=== PATIENT | male | born 1985 | race Caucasian/White ===

== ENCOUNTER 2019-04-10 11:50 | Inpatient (IN) | payer MEDICAID, OTHER ==
--- NOTE | 2019-04-10 13:12 | ED ---
Psych HPI - General Chief Complaint: Psychiatric Symptoms Stated Complaint: Mental Health Time Seen by Provider: 04/10/19 11:53 Source: patient, EMS, RN notes reviewed Mode of arrival: EMS Limitations: no limitations - History of Present Illness Initial Comments: 34-year-old male presents emergency Department for psychiatric evaluation. Patient states that he called 911 for help. Patient states that he is depressed, suicidal. Patient was standing on a bridge states he was going to jump off. He does admit to alcohol use and marijuana use. Patient denies any physical complaints other than his chronic pain. Patient denies any nausea vomiting diarrhea constipation. Denies any alcohol withdrawal symptoms. - Related Data Home Medications Medication Instructions Recorded Confirmed No Known Home Medications 04/10/19 04/10/19 Allergies Allergy/AdvReac Type Severity Reaction Status Date / Time No Known Allergies Allergy Verified 04/10/19 12:23 Review of Systems ROS Statement: Those systems with pertinent positive or pertinent negative responses have been documented in the HPI. ROS Other: All systems not noted in ROS Statement are negative. Past Medical History Past Medical History: GERD/Reflux Additional Past Medical History / Comment(s): hx ulcer, hiatal hernia, arthritis ADD bipolar disorder neuropathy both [id number] idiopathic History of Any Multi-Drug Resistant Organisms: MRSA Date of last positivie culture/infection: 06/02/2010 MDRO Source:: rt axilla Past Surgical History: Cholecystectomy, Hernia Repair, Orthopedic Surgery Additional Past Surgical History / Comment(s): arthroscopic rt knee for ACL repair, myringotomy x 4, left mastoid surgery, LAP UNRULY FUNDOPLASTY Past Anesthesia/Blood Transfusion Reactions: No Reported Reaction Past Psychological History: ADD/ADHD, Anxiety, Bipolar Smoking Status: Current every day smoker Past Alcohol Use History: Occasional Past Drug Use History: Marijuana - Past Family History Mother Family Medical History: Diabetes Mellitus, Hypertension General Exam Limitations: no limitations General appearance: alert, in no apparent distress Head exam: Present: atraumatic, normocephalic, normal inspection Eye exam: Present: normal appearance, PERRL, EOMI. Absent: scleral icterus, conjunctival injection, periorbital swelling ENT exam: Present: normal exam, normal oropharynx, mucous membranes moist Neck exam: Present: normal inspection, full ROM. Absent: tenderness, meningismus, lymphadenopathy Respiratory exam: Present: normal lung sounds bilaterally. Absent: respiratory distress, wheezes, rales, rhonchi, stridor Cardiovascular Exam: Present: normal rhythm, tachycardia, normal heart sounds. Absent: systolic murmur, diastolic murmur, rubs, gallop, clicks GI/Abdominal exam: Present: soft, normal bowel sounds. Absent: distended, tenderness, guarding, rebound, rigid Neurological exam: Present: alert, oriented X3 Psychiatric exam: Present: anxious Skin exam: Present: warm, dry, intact, normal color. Absent: rash Course Vital Signs 04/10/19 04/10/19 04/10/19 11:58 13:08 15:00 Temperature 98.9 F Pulse Rate 111 H 72 88 Respiratory 18 18 18 Rate Blood Pressure 144/98 131/70 140/70 O2 Sat by Pulse 93 L 100 100 Oximetry Medical Decision Making - Medical Decision Making Patient evaluated by EPS and recommends inpatient therapy. - Lab Data Lab Results 04/10/19 Range/Units 13:55 Urine Opiates Screen Not Detected (NotDetected) Ur Oxycodone Screen Not Detected (NotDetected) Urine Methadone Screen Not Detected (NotDetected) Ur Propoxyphene Screen Not Detected (NotDetected) Ur Barbiturates Screen Not Detected (NotDetected) U Tricyclic Antidepress Not Detected (NotDetected) Ur Phencyclidine Scrn Not Detected (NotDetected) Ur Amphetamines Screen Not Detected (NotDetected) U Methamphetamines Scrn Not Detected (NotDetected) U Benzodiazepines Scrn Not Detected (NotDetected) Urine Cocaine Screen Not Detected (NotDetected) U Marijuana (THC) Screen Detected H (NotDetected) Disposition Clinical Impression: Depression, Suicidal ideation Disposition: TRANSFER TO PSYCH HOSP/UNIT
[2019-04-10 14:46] LABS: Amphetamine Screen,Urine Not Detected (NotDetected); Barbiturate Screen,Urine Not Detected (NotDetected); Benzodiazepines Screen,Urine Not Detected (NotDetected); Cocaine Screen,Urine Not Detected (NotDetected); Methadone Screen, Urine Not Detected (NotDetected); Opiate Screen,Urine Not Detected (NotDetected); Oxycodone Screen, Urine Not Detected (NotDetected); Phencyclidine Screen,Urine Not Detected (NotDetected); Tricyclic Antidepressant,Urine Not Detected (NotDetected); Urn Cannabinoid Scrn Detected (NotDetected)
[2019-04-10] MEDS ORDERED: ACETAMINOPHEN TAB 325 MG TAB PO PRN (16:48)
[2019-04-10] MEDS ORDERED: MAG HYDROX/AL HYDROX/SIMETH 30 ML CUP PO PRN (16:48)
[2019-04-10] MEDS ORDERED: ZIPRASIDONE 20 MG VIAL IM PRN (16:48)
[2019-04-10] MEDS ORDERED: MAGNESIUM HYDROXIDE 2,400 MG/10 ML CUP PO PRN (16:48)
[2019-04-10] MEDS ORDERED: LORazepam 2 MG/ML INJ IM PRN (16:52)
[2019-04-10] MEDS: NICOTINE 21MG/24HR PATCH TRANSDERM SCH (17:42)
--- NOTE | 2019-04-11 07:05 | P.MDCNMH ---
History of Present Illness H&P Date: 04/11/19 Chief Complaint: Suicidal ideation 34-year-old male with no significant past medical history reports mental health problems with anxiety ADD and bipolar disorder Patient presented to Hospital suicidal ideation he was planning on jumping off the bridge due to life stressors and feeling overwhelmed at work and home. He works at a [employer]. Patient otherwise denies any medical concerns or complaints at this time he denies any fevers chills chest pain or trouble breathing denies any abdominal pain nausea vomiting changes in his bowel or urinary habits Review of Systems Pertinent positives as noted in HPI. All other systems were reviewed and are negative Past Medical History Past Medical History: GERD/Reflux Additional Past Medical History / Comment(s): hx ulcer, hiatal hernia, arthritis ADD bipolar disorder neuropathy both [id number] idiopathic History of Any Multi-Drug Resistant Organisms: MRSA Date of last positivie culture/infection: 06/02/2010 MDRO Source:: rt axilla Past Surgical History: Cholecystectomy, Hernia Repair, Orthopedic Surgery Additional Past Surgical History / Comment(s): arthroscopic rt knee for ACL repair, myringotomy x 4, left mastoid surgery, LAP UNRULY FUNDOPLASTY Past Anesthesia/Blood Transfusion Reactions: No Reported Reaction Past Psychological History: ADD/ADHD, Anxiety, Bipolar Smoking Status: Current every day smoker Past Alcohol Use History: Occasional Past Drug Use History: Marijuana - Past Family History Mother Family Medical History: Diabetes Mellitus, Hypertension Medications and Allergies Home Medications Medication Instructions Recorded Confirmed Type No Known Home Medications 04/10/19 04/10/19 History Allergies Allergy/AdvReac Type Severity Reaction Status Date / Time No Known Allergies Allergy Verified 04/10/19 16:10 Physical Exam Vitals: Vital Signs Temp Pulse Pulse Resp BP BP Pulse Ox 04/11/19 06:21 98.1 F 78 18 143/82 04/10/19 16:00 98.8 F 102 H 18 144/105 100 04/10/19 15:00 88 18 140/70 100 04/10/19 13:08 72 18 131/70 100 04/10/19 11:58 98.9 F 111 H 18 144/98 93 L Intake and Output 04/10/19 04/11/19 04/11/19 22:59 06:59 14:59 Other: Weight 76.7 kg Constitutional: No acute distress, conversant, pleasant Eyes: Anicteric sclerae, moist conjunctiva, no lid-lag Pupils equal round reactive to light ENMT: NC/AT Oropharynx clear, no erythema, exudates Neck: Supple, FROM, no masses, or JVD No carotid bruits No thyromegaly Lungs: Clear to auscultation Clear to percussion Normal respiratory effort, no accessory muscle use Cardiovascular: Heart regular in rate and rhythm, No murmurs, gallops, or rubs No peripheral edema Abdominal: Soft Nontender, no guarding, rebound or rigidity Abdomen moving with respiration Normoactive bowel sounds No hepatomegaly, No splenomegaly No palpable mass No abdominal wall hernia noted Skin: Small pinpoint lesion on bilateral inner thighs patient picks up on his skin when stressed out no tenderness no erythema no induration no drainage Normal temperature, tone, texture, turgor No induration No subcutaneous nodules No rash, lesions No ulcers Extremities: No digital cyanosis No clubbing Pedal pulses intact and symmetrical Radial pulses intact and symmetrical No calf tenderness Psychiatric: Alert and oriented to person, place and time Flat affect Poor judgment Neuro Muscles Strength 5/5 in all 4 extremities Sensation to light touch grossly present throughout Cranial nerves II-XII grossly intact No focal sensory deficits Lymphatics: no palpable cervical or supraclavicular , or inguinal lymph nodes Cranial Nerve Examination - Cranial Nerves Cranial Nerve II- Optic: Intact Cranial Nerve III- Oculomotor: Intact Cranial Nerve IV- Trochlear: Intact Cranial Nerve V- Trigeminal: Intact Cranial Nerve - Abducens: Intact Cranial Nerve VII- Facial: Intact Cranial Nerve VIII- Auditory: Intact Cranial Nerve IX- Glossopharyngeal: Intact Cranial Nerve X- Vagus: Intact Cranial Nerve XI- Accessory: Intact Cranial Nerve XII- Hypoglossal: Intact Results Labs: Abnormal Lab Results - Last 24 Hours (Table) 04/10/19 Range/Units 13:55 U Marijuana (THC) Screen Detected H (NotDetected) Assessment and Plan Assessment: 34-year-old malesignificant medical history has history of anxiety and bipolar disorder presented for suicidal ideation medicine consulted for medical management currently has no medical concerns Plan: Suicidal ideation Anxiety Bipolar disorder Management per psych Marijuana smoking Tobacco smoking Patient counseled to quit smoking nicotine replacement therapy offered Low risk for DVT patient is ambulatory Follow-up labs Thank you for allowing us to participate in the care of this patient. We will follow peripherally. Do not hesitate to contact us with questions. Someone can be reached from the [facility] hospitalist group at all hours of the day at [phone].
[2019-04-11] MEDS: NICOTINE 21MG/24HR PATCH TRANSDERM SCH (07:36)
[2019-04-11 09:38] LABS: Basophils % (A) 1 %; Eosinophils # (A) 0.1 k/uL (0-0.7); Eosinophils % (A) 1 %; HCT 45.4 % (39.0-53.0); HGB 15.1 gm/dL (13.0-17.5); Lymphocytes # (A) 1.7 k/uL (1.0-4.8); Lymphocytes % (A) 23 %; MCH 30.6 pg (25.0-35.0); MCHC 33.2 g/dL (31.0-37.0); MCV 91.9 fL (80.0-100.0); Mean Platelet Volume 6.4; Monocytes # (A) 0.5 k/uL (0-1.0); Monocytes % (A) 7 %; Neutrophils # (A) 4.9 k/uL (1.3-7.7); Neutrophils % (A) 67 %; Platelet Count 297 k/uL (150-450); RBC 4.94 m/uL (4.30-5.90); RDW 13.7 % (11.5-15.5); WBC 7.4 k/uL (3.8-10.6)
[2019-04-11 09:51] LABS: ALT 41 U/L (21-72); AST 50 U/L (17-59); African American GFR (CKD) >90 (>60 ml/min/1.73 sqM); Albumin 4.6 g/dL (3.5-5.0); Alkaline Phosphatase 78 U/L (38-126); Anion Gap 7 mmol/L; Blood Urea Nitrogen 10 mg/dL (9-20); Calcium 9.7 mg/dL (8.4-10.2); Carbon Dioxide 27 mmol/L (22-30); Chloride 104 mmol/L (98-107); Cholesterol 222 mg/dL (<200); Glucose 130 mg/dL (74-99); HDL Cholesterol 110 mg/dL (40-60); LDL Cholesterol,Calculated 90 mg/dL (0-99); Potassium 3.8 mmol/L (3.5-5.1); Sodium 138 mmol/L (137-145); Total Bilirubin 2.1 mg/dL (0.2-1.3); Total Protein 7.5 g/dL (6.3-8.2); Triglycerides 111 mg/dL (<150)
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
[2019-04-11 13:24] VITALS: BMI 27.3
[2019-04-11] MEDS: LORazepam 1 MG TAB PO PRN (16:40)
[2019-04-11 17:58] LABS: Hemoglobin A1C 5.9 % (4.0-6.0)
[2019-04-11] MEDS: ARIPiprazole 5 MG TAB PO SCH (20:40)
[2019-04-11] MEDS: MELATONIN 3 MG TABLET PO SCH (20:40)
[2019-04-12] MEDS: LORazepam 1 MG TAB PO PRN (10:27)
--- NOTE | 2019-04-12 13:44 | P.PN ---
Progress Note - Text Progress Note Date: 04/12/19 Interval History: Patient is a 34-year-old male who was seen today and he reports that he slept better last night and has been eating more each meal. He states he still feels depressed but no suicidal thoughts. He states that he is feeling anxious, no sweating or shaking. He states that he's been attending groups and activities. He states that he and his girlfriend will still split and he will have to look for housing at the time of discharge and he declined a referral for inpatient alcohol rehab. Mental Status: Appearance/Attitude: Patient is casually dressed, makes eye contact and was cooperative Behavior: Patient does not display any psychomotor agitation or retardation. Speech/Language: Patient's speech was spontaneous and normal volume and rhythm and he is coherent Thought Process: Patient is goal-directed there is no evidence of loose association or flight of ideas Thought Content: Patient denies any auditory or visual hallucinations and no delusions or paranoid ideation or elicited. Patient states he is feeling less depressed, he slept better last evening and is eating better. He states he still feeling anxious during the day but denies any sweating or shaking. He states that he has been attending groups and activities. Suicidal/Homicidal Ideation: Patient denies any current suicidal or homicidal ideation Sensorium/Cognition: Patient is alert and oriented to person, place, and time and his recent and remote memory grossly intact Mood/Affect: Patient's mood remains depressed and his affect slightly blunted Insight/Judgment: Patient's insight and judgment are fair Assessment: Patient states that he feels somewhat better as he was able to sleep and is eating better. He is not reporting any sweating, shaking or other alcohol withdrawal symptoms. He is reporting no current suicidal thoughts and states he's feeling anxious. Patient states that he will have to look for housing when he is discharged as he is not going to be able to return to live with his girlfriend. Patient states that he is I'm any side effects from the medication. Plan: Patient will continue on Abilify 5 mg and on Monday night we'll increase to 10 mg of Abilify. Patient will continue on melatonin 3 mg to address his sleep difficulties. Patient will also be prescribed Vistaril 25 mg 3 times a day as needed for anxiety and he was instructed to ask for this medication and not Ativan, the Ativan should be used for alcohol withdrawal symptoms. Patient's vital signs morning were stable. Patient and I discussed inpatient alcohol rehab and he declined a referral. Patient continues to require hospitalization to stabilize his mood.
[2019-04-12] MEDS: hydrOXYzine PAMOATE 25 MG CAP PO PRN (17:06)
[2019-04-12] MEDS: MELATONIN 3 MG TABLET PO SCH (21:23)
[2019-04-12] MEDS: ARIPiprazole 5 MG TAB PO SCH (21:23)
[2019-04-13] MEDS: hydrOXYzine PAMOATE 25 MG CAP PO PRN ×2 (07:19→15:34)
--- NOTE | 2019-04-13 11:06 | P.PN ---
Progress Note - Text Interval history: The patient is found in his room he follows me to an interview room. He is diagnosed with bipolar disorder and was admitted with symptoms of depression. He is been started on Abilify as a mood stabilizer. He indicates he slept well last night appetite stable. He indicates he's been attending groups. He has no questions or concerns regarding the Abilify. He states that he needs to find another residence upon discharge. He identifies having little social support. He is considering contacting his sister as she has been helpful no past. Mental status exam: The patient is a male appearing his stated age. He is tanned he wears a long mckinney. He has a disheveled appearance hygiene is adequate. He is pleasant and cooperative. Eye contact is appropriate speech is fluent spontaneous nonpressured. He indicates his mood is better. He is reporting no current suicidal or homicidal ideation intent or plan. He is reporting no auditory or visual hallucinations or any specific delusions. There is no observed evidence of psychosis. He demonstrates no tangential thinking loose associations or flight of ideas. He does not appear hypomanic or manic. Insight and judgment improving. He demonstrates no verbal or physical aggressiveness. He demonstrates no involuntary repetitive movements. He does not appear diaphoretic he demonstrates no tremor. Plan: The patient will continue on his current psychotropic medication. The Abilify is planned to be increased tomorrow. He is encouraged to continue participating in the milieu. We will monitor him for safety. We'll continue to monitor for any alcohol withdrawal symptoms. Vital signs reviewed.
[2019-04-13] MEDS: ARIPiprazole 5 MG TAB PO SCH (20:09)
[2019-04-13] MEDS: MELATONIN 3 MG TABLET PO SCH (20:09)
[2019-04-14] MEDS: hydrOXYzine PAMOATE 25 MG CAP PO PRN ×3 (01:24→17:40)
--- NOTE | 2019-04-14 13:02 | P.PN ---
Progress Note - Text Interval history: The patient is found in group he follows me to an interview room. Indicates his mood is better today. He had a conversation with his ex- girlfriend and that seemed to go better than he anticipated. He states he knows he cannot return there and is planning on contacting his sister today to ask for assistance. He has no questions or concerns regarding medication. He indicates he slept well staff recorded he slept 6 hours. Appetite is stable. He is endorsing no symptoms of withdrawal. Mental status exam: The patient is alert he is dressed in his own clothing. He has adequate hygiene and fair grooming. He has braided his mckinney this morning. Eye contact is appropriate. He is cooperative pleasant easily directed in the interview. He indicates his mood is better he denies having any suicidal or homicidal ideation intent or plan. He is reporting no auditory or visual hallucinations or specific delusions. There is no observed evidence of psychosis. He does not appear hypomanic or manic. Insight and judgment improving. He demonstrates no verbal or physical aggressiveness. He is demonstrating no involuntary repetitive movements. He is oriented to person place and date. Plan: The patient will continue on his medication as written. We will monitor him for safety. He appears to be clinically stabilizing. He is encouraged to continue participating in the milieu. Vital signs reviewed.
[2019-04-14] MEDS ORDERED: ARIPiprazole 10 MG TAB PO SCH (21:00)
[2019-04-14] MEDS: MELATONIN 3 MG TABLET PO SCH (21:15)
[2019-04-15] MEDS: hydrOXYzine PAMOATE 25 MG CAP PO PRN ×2 (05:34→14:03)
[2019-04-15 06:35] VITALS: BP 141/88; PULSE 82; RESP 18; TEMP 97.7
--- NOTE | 2019-04-15 11:31 | P.DS ---
Providers Date of admission: 04/10/19 15:31 Expected date of discharge: 04/15/19 Attending physician: Alice Noonan MD Consults: 04/10/19 17:35 Consult Physician Routine Consulting Provider: Veronica Sanchez Consult Reason/Comments: H&P medical management Do you want consulting provider notified?: Already Contacted Primary care physician: [facility] Course: Discharge Diagnosis: Bipolar type I, current episode depressed with psychotic features; alcohol use disorder, moderate severity; marijuana use disorder, moderate severity Reason for Admission: Patient is a 34-year-old who called 911 because he had thoughts of jumping off the bridge. Patient states that he's been using a pint of alcohol a day since the beginning of the year because he feels like he wants to end it. He states he is so much going on, he has to move out of the house because his girlfriend is asked him to leave due to his drinking, he reports that he is continually asked by his parents to assist them as he states they are disabled. Patient states that his parents are disabled, stating that his mother has fibromyalgia and uses a cane to ambulate and it is his stepfather and he has degenerative disc disease. He states that he has not spoken with them since [place] and hasn't gone there because of a text that they sent his girlfriend about his not coming to assist them. Patient states that things became more stressful in the fall because his girlfriend began working overnight and he needed to be present more often during the day to assist with the children. 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 Patient states that he has become increasingly depressed, using alcohol to make himself feel better and states that he is been isolative and not talking with anyone and this is also caused problems with his girlfriend. Patient states that he is not sleeping well feels tired with little energy and no motivation. He states that he more irritable and does have angry outbursts but is not become physical with either his children or his partner. Patient states that he has not been eating or sleeping well. Patient states that he is more withdrawn and also describes episodes where he has an increased level of energy with decreased need for sleep, patient's up at night cleaning impulsive spending increased interest in sex as well as unrealistic goals and ideas. He also feels he has special phililp during this time to manipulate people to do things that he wants. Patient states he has auditory hallucinations when he is depressed telling him to hurt himself and Jeanna derogatory nature. Patient's recent treatment in 2010 after a suicide attempt and he was admitted here and went to [facility] for several months after just charge and was on Seroquel, Neurontin, Ritalin and unknown antidepressant. Patient states he's had no treatment since that time. Patient states that he began using alcohol at the age of 5 and regular use began at the age of 18. In his 20s he was using a fifth of alcohol every other day currently has been using a pint a day [place] time. Patient states that he has never had any withdrawal seizures or DTs but does state he has blackouts while using alcohol. Patient states that he is also been using marijuana on a daily basis since the age 16. Patient states that his girlfriend is asked him to move out of the house, states this is due to his being withdrawn and not talking as well as being irritable and angry and issues related to the conflicts with his family. Mental status on Admission: Appearance/Attitude: Patient is dressed in a hospital gown, makes eye contact and was cooperative Behavior: Patient does not exhibit any psychomotor agitation or retardation. Speech/Language: Patient's speech is spontaneous of normal volume and rhythm and he is coherent Thought Process: Patient is goal-directed there is no evidence of loose associa tion or flight of ideas Thought Content: Patient reports auditory hallucinations telling him to hurt himself and are of a derogatory nature, no visual hallucinations and no delusions or paranoid ideation or elicited. Patient states that he has been increasingly withdrawn not talking, stated like he felt like he wanted to end it because he got so much going on and now has to move out of his apartment due to his girlfriend asking him to do so. Patient states under a lot of pressure to assist his parents. Patient states he has not been eating or sleeping well and feels tired and unmotivated to do things. Patient has been using alcohol a pint a day since the fall. He also reports multiple physical complaints and states physically doesn't feel well. Suicidal/Homicidal Ideation: Patient denies any current homicidal ideation and states he feels like he should end it all but states he has no current plan or intent to act Sensorium/Cognition: Patient is alert and oriented to person, place, and time and his recent and remote memory grossly intact Mood/Affect: Patient's mood is depressed and his affect is blunted Insight/Judgment: Patient's insight and judgment are fair Hospital Course: Patient was admitted on a voluntary basis, placed on routine observation and group and activity therapy were ordered. Patient was also ordered routine laboratory studies as well as a medical consultation. Patient and I had a long discussion regarding treatment options and we discussed the use and side effects of the Abilify and the patient was begun on 5 mg titrated to a dose of 10 mg at night. Patient was also placed on Ativan for alcohol withdrawal using CIWA protocol. Patient was also placed on melatonin 3 mg at bedtime to assist with his sleep. Patient was also given Vistaril 25 mg every 8 hours as needed for anxiety. Patient reported that he is no longer hearing voices, his mood was much more stable and he was no longer feeling suicidal. Patient and I discussed inpatient alcohol rehab and he declined a referral for that stating that he would prefer to do outpatient. Patient reported that he continued to improve felt the Vistaril was beneficial for his anxiety and that he was sleeping better. He reported that he has girlfriend will not let him return to the home and so he stated he had nowhere to live and was accepting of staying in a fdc. Patient will return to work and felt that he was ready for discharge. He reported no side effects from his medications. Patient had been attending groups and activities here reported that his sleep had improved and he was eating well. Patient's vital signs were stable. Allergies No Known Allergies Allergy (Verified 04/10/19 16:10) Laboratory Last Values WBC 7.4 k/uL (3.8-10.6) 04/11/19 09:14 RBC 4.94 m/uL (4.30-5.90) 04/11/19 09:14 Hgb 15.1 gm/dL (13.0-17.5) 04/11/19 09:14 Hct 45.4 % (39.0-53.0) 04/11/19 09:14 MCV 91.9 fL (80.0-100.0) 07/11/19 09:14 MCH 30.6 pg (25.0-35.0) 04/11/19 09:14 MCHC 33.2 g/dL (31.0-37.0) 04/11/19 09:14 RDW 13.7 % (11.5-15.5) 04/11/19 09:14 Plt Count 297 k/uL (150-450) 04/11/19 09:14 Neutrophils % 67 % 04/11/19 09:14 Lymphocytes % 23 % 04/11/19 09:14 Monocytes % 7 % 04/11/19 09:14 Eosinophils % 1 % 04/11/19 09:14 Basophils % 1 % 04/11/19 09:14 Neutrophils # 4.9 k/uL (1.3-7.7) 04/11/19 09:14 Lymphocytes # 1.7 k/uL (1.0-4.8) 04/11/19 09:14 Monocytes # 0.5 k/uL (0-1.0) 04/11/19 09:14 Eosinophils # 0.1 k/uL (0-0.7) 04/11/19 09:14 Basophils # 0.0 k/uL (0-0.2) 04/11/19 09:14 Sodium 138 mmol/L (137-145) 04/11/19 09:14 Potassium 3.8 mmol/L (3.5-5.1) 04/11/19 09:14 Chloride 104 mmol/L (98-107) 04/11/19 09:14 Carbon Dioxide 27 mmol/L (22-30) 04/11/19 09:14 Anion Gap 7 mmol/L 04/11/19 09:14 BUN 10 mg/dL (9-20) 04/11/19 09:14 Creatinine 0.84 mg/dL (0.66-1.25) 04/11/19 09:14 Est GFR (CKD-EPI)AfAm >90 (>60 ml/min/1.73 sqM) 04/11/19 09:14 Est GFR (CKD-EPI)NonAf >90 (>60 ml/min/1.73 sqM) 04/11/19 09:14 Glucose 130 mg/dL (74-99) H 04/11/19 09:[address] Glu mg/dL 123 04/11/19 09:14 Hemoglobin A1c 5.9 % (4.0-6.0) 04/11/19 09:14 Calcium 9.7 mg/dL (8.4-10.2) 04/11/19 09:14 Total Bilirubin 2.1 mg/dL (0.2-1.3) H 04/11/19 09:14 AST 50 U/L (17-59) 04/11/19 09:14 ALT 41 U/L (21-72) 04/11/19 09:14 Alkaline Phosphatase 78 U/L (38-126) 04/11/19 09:14 Total Protein 7.5 g/dL (6.3-8.2) 04/11/19 09:14 Albumin 4.6 g/dL (3.5-5.0) 04/11/19 09:14 Triglycerides 111 mg/dL (<150) 04/11/19 09:14 Cholesterol 222 mg/dL (<200) H 04/11/19 09:14 LDL Cholesterol, Calc 90 mg/dL (0-99) 04/11/19 09:14 HDL Cholesterol 110 mg/dL (40-60) H 04/11/19 09:14 TSH 2.100 mIU/L (0.465-4.680) 04/11/19 09:14 Urine Opiates Screen Not Detected (NotDetected) 04/10/19 13:55 Ur Oxycodone Screen Not Detected (NotDetected) 04/10/19 13:55 Urine Methadone Screen Not Detected (NotDetected) 04/10/19 13:55 Ur Propoxyphene Screen Not Detected (NotDetected) 04/10/19 13:55 Ur Barbiturates Screen Not Detected (NotDetected) 04/10/19 13:55 U Tricyclic Antidepress Not Detected (NotDetected) 04/10/19 13:55 Ur Phencyclidine Scrn Not Detected (NotDetected) 04/10/19 13:55 Ur Amphetamines Screen Not Detected (NotDetected) 04/10/19 13:55 U Methamphetamines Scrn Not Detected (NotDetected) 04/10/19 13:55 U Benzodiazepines Scrn Not Detected (NotDetected) 04/10/19 13:55 Urine Cocaine Screen Not Detected (NotDetected) 04/10/19 13:55 U Marijuana (THC) Screen Detected (NotDetected) H 04/10/19 13:55 Discharge Mental Status: Appearance/Attitude: Patient is neatly and appropriately dressed, makes eye contact and was cooperative Behavior: Patient does not exhibit any psychomotor agitation or retardation. Speech/Language: Patient's speech is spontaneous of normal volume and rhythm and he is coherent. Thought Process: Patient is goal-directed there is no evidence of loose association or flight of ideas Thought Content: Patient denies any auditory or visual hallucinations and no delusions or paranoid ideation or elicited. Patient states that he is feeling more stable, states that the Vistaril is been beneficial for his anxiety and states that he sleeping and eating well. Suicidal/Homicidal Ideation: Patient denies any current suicidal or homicidal ideation Sensorium/Cognition: Patient is alert and oriented to person, place and time Mood/Affect: Patient's mood is stable his affect is appropriate Insight/Judgment: Patient's insight and judgment are fair Risk Assessment: Patient's risk for readmission is moderate should he return to using alcohol and drugs and not be compliant with medication and follow-up appointments Discharge Plan: Patient will be discharged, he will be living in a fdc and continue on Abilify 10 mg a day and Vistaril 25 mg 3 times a day as needed for anxiety and melatonin 3 mg for sleep. Patient was advised to avoid all alcohol and drugs and be compliant with outpatient follow-up appointments and medication. Patient was encouraged to attend AA meetings. Patient will be given prescriptions for his medication. Patient will Patient Condition at Discharge: Stable Plan - Discharge Summary Discharge Rx Participant: No New Discharge Prescriptions: New ARIPiprazole [Abilify] 10 mg PO HS #14 tab Melatonin 3 mg PO HS #28 tablet hydrOXYzine PAMOATE [Vistaril] 25 mg PO Q8HR PRN #20 cap PRN Reason: Anxiety Discharge Medication List ARIPiprazole [Abilify] 10 mg PO HS #14 tab 04/15/19 [Rx] Melatonin 3 mg PO HS #28 tablet 04/15/19 [Rx] hydrOXYzine PAMOATE [Vistaril] 25 mg PO Q8HR PRN #20 cap 04/15/19 [Rx] Follow up Appointment(s)/Referral(s): Teddy Apodaca [Outside] - 04/17/19 9:30 am (Nelda Muniz) Pavel Hansen DO [Primary Care Provider] - 1-2 days Patient Instructions/Handouts: Bipolar Disorder (DC), Depression (DC), Help Prevent Suicide (DC) Activity/Diet/Wound Care/Special Instructions: Activity and diet as tolerated. No guns or weapons in the home. Refrain from alcohol and drugs that are not prescribed by your physician. Take all medications as prescribed by your physicians, and attend all follow up appointments as scheduled. If in need of medication refills, please go to your primary care physician, or your out patient psychiatric provider. If in crisis, please call , or go the nearest ER for an evaluation. Discharge Disposition: HOME SELF-CARE
== END 2019-04-15 14:43 | disposition home or self-care (01) | DRG 885 ==
LOC: EC 11:50 → 3MHU 15:31
PROVIDERS: ADMIT Psychiatry & Neurology Psychiatry; ATTEND Psychiatry & Neurology Psychiatry
DX: F31.5 Bipolar disorder, current episode depressed, severe, with psychotic features (principal); F10.239 Alcohol dependence with withdrawal, unspecified; R45.851 Suicidal ideations; F12.10 Cannabis abuse, uncomplicated; Z71.6 Tobacco abuse counseling; F17.210 Nicotine dependence, cigarettes, uncomplicated; F41.9 Anxiety disorder, unspecified; F90.9 Attention-deficit hyperactivity disorder, unspecified type; G89.29 Other chronic pain; K21.9 Gastro-esophageal reflux disease without esophagitis; Z81.8 Family history of other mental and behavioral disorders; Z82.49 Family history of ischemic heart disease and other diseases of the circulatory system; Z83.3 Family history of diabetes mellitus; Z90.49 Acquired absence of other specified parts of digestive tract; Z81.1 Family history of alcohol abuse and dependence; Z87.11 Personal history of peptic ulcer disease; G62.9 Polyneuropathy, unspecified; K44.9 Diaphragmatic hernia without obstruction or gangrene
CPT/HCPCS: 80053; 80061; 80306; 82075; 83036; 84443; 85025; 99285

== ENCOUNTER 2019-07-24 20:25 | Inpatient (IN) | payer OTHER ==
--- NOTE | 2019-07-24 21:08 | ED ---
Psych HPI - General Chief Complaint: Psychiatric Symptoms Stated Complaint: mental health Time Seen by Provider: 07/24/19 20:30 Source: patient, RN notes reviewed Mode of arrival: ambulatory Limitations: no limitations - History of Present Illness Initial Comments: 34-year-old male presents emergency Department chief complaint of depression, suicidal ideation. Patient has a history of bipolar disorder, depression states that he is admitted a while back states he is on medications though he states he losses insurance and has not been able to afford them. Patient states that he syrup breaking point because he also rectal his truck. Patient has been seen in a homeless group home. Patient has not seen his kids in over 1 month. Patient does admit that his use and alcohol no drug use otherwise than marijuana. - Related Data Home Medications Medication Instructions Recorded Confirmed Sertraline [Zoloft] 50 mg PO HS 07/24/19 07/24/19 Previous Rx's Medication Instructions Recorded ARIPiprazole [Abilify] 10 mg PO HS #14 tab 04/15/19 hydrOXYzine PAMOATE [Vistaril] 25 mg PO Q8HR PRN #20 cap 04/15/19 Allergies Allergy/AdvReac Type Severity Reaction Status Date / Time No Known Allergies Allergy Verified 07/24/19 21:40 Review of Systems ROS Statement: Those systems with pertinent positive or pertinent negative responses have been documented in the HPI. ROS Other: All systems not noted in ROS Statement are negative. Past Medical History Past Medical History: GERD/Reflux Additional Past Medical History / Comment(s): hx ulcer, hiatal hernia, arthritis ADD bipolar disorder neuropathy both [id number] idiopathic History of Any Multi-Drug Resistant Organisms: MRSA Date of last positivie culture/infection: 06/02/2010 MDRO Source:: rt axilla Past Surgical History: Cholecystectomy, Hernia Repair, Orthopedic Surgery Additional Past Surgical History / Comment(s): arthroscopic rt knee for ACL repair, myringotomy x 4, left mastoid surgery, LAP UNRULY FUNDOPLASTY Past Anesthesia/Blood Transfusion Reactions: No Reported Reaction Past Psychological History: ADD/ADHD, Anxiety, Bipolar Smoking Status: Current every day smoker Past Alcohol Use History: Occasional Past Drug Use History: Marijuana - Past Family History Mother Family Medical History: Diabetes Mellitus, Hypertension General Exam Limitations: no limitations General appearance: alert, in no apparent distress, anxious Head exam: Present: atraumatic, normocephalic, normal inspection Eye exam: Present: normal appearance, PERRL, EOMI. Absent: scleral icterus, conjunctival injection, periorbital swelling ENT exam: Present: normal exam, normal oropharynx, mucous membranes moist Neck exam: Present: normal inspection, full ROM. Absent: tenderness, meningismus, lymphadenopathy Respiratory exam: Present: normal lung sounds bilaterally. Absent: respiratory distress, wheezes, rales, rhonchi, stridor Cardiovascular Exam: Present: normal rhythm, tachycardia, normal heart sounds. Absent: systolic murmur, diastolic murmur, rubs, gallop, clicks Neurological exam: Present: alert, oriented X3, CN II-XII intact Psychiatric exam: Present: depressed Skin exam: Present: warm, dry, intact, normal color. Absent: rash Course Vital Signs 07/24/19 20:27 Temperature 98.1 F Pulse Rate 111 H Respiratory 18 Rate Blood Pressure 157/81 O2 Sat by Pulse 99 Oximetry Medical Decision Making - Lab Data Result diagrams: 07/25/19 08:18 07/25/19 08:18 Lab Results 07/24/19 Range/Units 21:28 Urine Opiates Screen Not Detected (NotDetected) Ur Oxycodone Screen Not Detected (NotDetected) Urine Methadone Screen Not Detected (NotDetected) Ur Propoxyphene Screen Not Detected (NotDetected) Ur Barbiturates Screen Not Detected (NotDetected) U Tricyclic Antidepress Not Detected (NotDetected) Ur Phencyclidine Scrn Not Detected (NotDetected) Ur Amphetamines Screen Not Detected (NotDetected) U Methamphetamines Scrn Not Detected (NotDetected) U Benzodiazepines Scrn Not Detected (NotDetected) Urine Cocaine Screen Not Detected (NotDetected) U Marijuana (THC) Screen Detected H (NotDetected) Disposition Clinical Impression: Depression, Suicidal ideation Disposition: [facility] Time of Disposition: 17:44
[2019-07-24 21:54] LABS: Amphetamine Screen,Urine Not Detected (NotDetected); Barbiturate Screen,Urine Not Detected (NotDetected); Benzodiazepines Screen,Urine Not Detected (NotDetected); Cocaine Screen,Urine Not Detected (NotDetected); Methadone Screen, Urine Not Detected (NotDetected); Opiate Screen,Urine Not Detected (NotDetected); Oxycodone Screen, Urine Not Detected (NotDetected); Phencyclidine Screen,Urine Not Detected (NotDetected); Tricyclic Antidepressant,Urine Not Detected (NotDetected); Urn Cannabinoid Scrn Detected (NotDetected)
[2019-07-25 05:47] VITALS: BMI 27.2
[2019-07-25] MEDS ORDERED: ACETAMINOPHEN TAB 325 MG TAB PO PRN (06:12)
[2019-07-25] MEDS ORDERED: ZIPRASIDONE 20 MG VIAL IM PRN (06:12)
[2019-07-25] MEDS ORDERED: MAGNESIUM HYDROXIDE 2,400 MG/10 ML CUP PO PRN (06:12)
[2019-07-25] MEDS ORDERED: LORazepam 1 MG TAB PO PRN (06:12)
[2019-07-25] MEDS ORDERED: MAG HYDROX/AL HYDROX/SIMETH 30 ML CUP PO PRN (06:12)
[2019-07-25] MEDS: NICOTINE 21MG/24HR PATCH TRANSDERM SCH (07:54)
[2019-07-25 08:57] LABS: Basophils % (A) 0 %; Eosinophils # (A) 0.1 k/uL (0-0.7); Eosinophils % (A) 1 %; HCT 47.3 % (39.0-53.0); HGB 15.3 gm/dL (13.0-17.5); Lymphocytes # (A) 2.8 k/uL (1.0-4.8); Lymphocytes % (A) 31 %; MCH 29.9 pg (25.0-35.0); MCHC 32.4 g/dL (31.0-37.0); MCV 92.5 fL (80.0-100.0); Mean Platelet Volume 5.7; Monocytes # (A) 0.5 k/uL (0-1.0); Monocytes % (A) 5 %; Neutrophils # (A) 5.4 k/uL (1.3-7.7); Neutrophils % (A) 60 %; Platelet Count 352 k/uL (150-450); RBC 5.11 m/uL (4.30-5.90); RDW 13.5 % (11.5-15.5); WBC 8.9 k/uL (3.8-10.6)
[2019-07-25 09:07] LABS: ALT 36 U/L (21-72); AST 40 U/L (17-59); African American GFR (CKD) >90 (>60 ml/min/1.73 sqM); Albumin 4.2 g/dL (3.5-5.0); Alkaline Phosphatase 72 U/L (38-126); Anion Gap 9 mmol/L; Blood Urea Nitrogen 20 mg/dL (9-20); Calcium 9.2 mg/dL (8.4-10.2); Carbon Dioxide 27 mmol/L (22-30); Chloride 103 mmol/L (98-107); Cholesterol 198 mg/dL (<200); Glucose 113 mg/dL (74-99); HDL Cholesterol 93 mg/dL (40-60); LDL Cholesterol,Calculated 40 mg/dL (0-99); Potassium 4.8 mmol/L (3.5-5.1); Sodium 139 mmol/L (137-145); Total Protein 7.3 g/dL (6.3-8.2); Triglycerides 327 mg/dL (<150)
[2019-07-25] MEDS ORDERED: LORazepam 2 MG/ML INJ IM PRN ×3 (11:04)
[2019-07-25] MEDS: SERTRALINE 25 MG TAB PO SCH (12:11)
[2019-07-25] MEDS: GABAPENTIN 100 MG CAP PO SCH ×3 (12:11→21:16)
[2019-07-25] MEDS: ARIPiprazole 5 MG TAB PO SCH (12:11)
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
[2019-07-25] MEDS: THIAMINE 100 MG TAB PO SCH (16:27)
[2019-07-25] MEDS: LORazepam 1 MG TAB PO PRN (16:30)
[2019-07-25] MEDS ORDERED: guaiFENesin 600 MG TABLET.ER PO PRN (16:38)
[2019-07-25] MEDS ORDERED: BENZOCAINE/MENTHOL LOZENG 1 EACH LOZENGE MUCOUS MEM PRN (16:38)
--- NOTE | 2019-07-25 16:40 | P.HPMEDMHU ---
History of Present Illness H&P Date: 07/25/19 Chief Complaint: depression Patient is a 34-year-old male to past medical history of arthritis, GERD, ADD, neuropathy, and bipolar disorder who has been admitted to the mental health unit secondary to depression and suicidal ideation. We are asked to see him for medical consultation Patient seen and examined. He reports that he has been feeling very depressed a nd has been homeless. He states that he has been drinking copious amounts of alcohol. He was wearing wet boots for an extended period of time approximately 4 days ago and then noticed some redness on his feet, history of athlete's foot the past, this is itchy. It is between the webs of his toes extending on his toes. He also reports that he has had nausea and vomiting almost every morning on waking related to a runny nose, stuffy nose, and postnasal drip. He states this is due to chronic sinusitis. He denies a cough, fever, or chills. He does report that he has had some intermittent diarrhea but no abdominal pain. He also reports decreased appetite with approximately a 10 held weight loss in one month. He has been having some insomnia. During our conversation he appears to be concentrating, however he is unable to sit still and has continued bouncing of his right leg, and ringing of his hands. He reports that he has never had a history of alcohol withdrawal. He has been drinking consistently 1 pint 4 days weekly for approximately the last 1 year. Review of Systems Pertinent positives and negatives as discussed in HPI, a complete review of systems was performed and all other systems are negative. Past Medical History Past Medical History: GERD/Reflux Additional Past Medical History / Comment(s): hx ulcer, hiatal hernia, arthritis ADD bipolar disorder neuropathy both [id number] idiopathic History of Any Multi-Drug Resistant Organisms: MRSA Date of last positivie culture/infection: 06/02/2010 MDRO Source:: rt axilla Past Surgical History: Cholecystectomy, Hernia Repair, Orthopedic Surgery Additional Past Surgical History / Comment(s): arthroscopic rt knee for ACL repair, myringotomy x 4, left mastoid surgery, LAP UNRULY FUNDOPLASTY Past Anesthesia/Blood Transfusion Reactions: No Reported Reaction Past Psychological History: ADD/ADHD, Anxiety, Bipolar Smoking Status: Current every day smoker Past Alcohol Use History: Occasional Past Drug Use History: Marijuana Additional History: Reports that he is homeless. - Past Family History Mother Family Medical History: Diabetes Mellitus, Hypertension Medications and Allergies Home Medications Medication Instructions Recorded Confirmed Type ARIPiprazole [Abilify] 10 mg PO HS #14 tab 04/15/19 07/24/19 Rx hydrOXYzine PAMOATE [Vistaril] 25 mg PO Q8HR PRN #20 cap 04/15/19 07/24/19 Rx Sertraline [Zoloft] 50 mg PO HS 07/24/19 07/24/19 History Allergies Allergy/AdvReac Type Severity Reaction Status Date / Time No Known Allergies Allergy Verified 07/24/19 21:40 Physical Exam Osteopathic Statement: *. No significant issues noted on an osteopathic structural exam other than those noted in the History and Physical/Consult. Vitals: Vital Signs Temp Pulse Pulse Resp BP BP Pulse Ox 07/25/19 06:54 99 16 141/74 07/25/19 05:15 98.0 F 77 18 140/97 07/24/19 20:27 98.1 F 111 H 18 157/81 99 General: non toxic, no distress, appears at stated age, normal weight, disheveled Derm: Bilateral feet with erythema that is violaceous without feeling, or soft in between the webbing of the toes. no unusual rashes/lesions no unusual ecchymoses, warm, dry Head: atraumatic, normocephalic, symmetric Eyes: EOMI, no lid lag, anicteric sclera, pupils equal round reactive to light ENT: Nose and ears atraumatic, no thrush, no pharyngeal erythema Neck: No thyromegaly, no cervical lymphadenopathy, trachea midline, supple Mouth: no lip lesion, mucus membranes moist Cardiovascular: S1S2 reg, no murmur, positive posterior tibial pulse bilateral, no edema, capillary refill less than 2 seconds Lungs: CTA bilateral, no rhonchi, no rales , no accessory muscle use Abdominal: soft, nontender to palpation, no guarding, no appreciable organomegaly, normal bowel sounds Ext: no gross muscle atrophy, muscle strength 5 out of 5 in all 4 extremities grossly, no contractures, Neuro: CN II-XI grossly intact, light touch intact all 4 extremities, finger to nose within normal limits, Psych: Alert, oriented, flat affect, appears very anxious, unable to sit still. Cranial Nerve Examination - Cranial Nerves Cranial Nerve II- Optic: Intact Cranial Nerve III- Oculomotor: Intact Cranial Nerve IV- Trochlear: Intact Cranial Nerve V- Trigeminal: Intact Cranial Nerve - Abducens: Intact Cranial Nerve VII- Facial: Intact Cranial Nerve VIII- Auditory: Intact Cranial Nerve IX- Glossopharyngeal: Intact Cranial Nerve X- Vagus: Intact Cranial Nerve XI- Accessory: Intact Cranial Nerve XII- Hypoglossal: Intact Results CBC & Chem 7: 07/25/19 08:18 07/25/19 08:18 Labs: Abnormal Lab Results - Last 24 Hours (Table) 07/24/19 07/25/19 Range/Units 21:28 08:18 Glucose 113 H (74-99) mg/dL Triglycerides 327 H (<150) mg/dL HDL Cholesterol 93 H (40-60) mg/dL U Marijuana (THC) Screen Detected H (NotDetected) Thrombosis Risk Factor Assmnt - Choose All That Apply Any of the Below Risk Factors Present?: No Other Risk Factors: No Other congenital or acquired thrombophilia - If yes, enter type in comment: No Thrombosis Risk Factor Assessment Level: Very Low Risk Assessment and Plan Assessment: Tinea Pedis - Lamasil BID X 14 days Sinusitis - claritin - flonase - mucinex - cepachol ETOH abuse with impending withdrawals - Thiamine, folic acid - Benzo per psych Tobacco absue - cessation - nicotine replacement Hyperthriglyceredemia - limit ETOH intake - smoking cessation - weight reduction Neuropathy - gabapentin Depression - your psych management Thank you for allowing us to participate in the care of this patient. We will follow peripherally. Do not hesitate to contact us with questions. Someone can be reached from the [facility] hospitalist group at all hours of the day at [phone].
[2019-07-25] MEDS: LORATADINE 10 MG TAB PO SCH (17:14)
[2019-07-25 20:12] LABS: Hemoglobin A1C 5.9 % (4.0-6.0)
[2019-07-25] MEDS: TERBINAFINE 1% CREAM 15 GM TUBE TOPICAL SCH (21:15)
[2019-07-26 04:16] LABS: Cholesterol 194 mg/dL (<200); HDL Cholesterol 90 mg/dL (40-60); LDL Cholesterol,Calculated 39 mg/dL (0-99); Triglycerides 325 mg/dL (<150)
[2019-07-26] MEDS: ARIPiprazole 5 MG TAB PO SCH (08:55)
[2019-07-26] MEDS: THIAMINE 100 MG TAB PO SCH ×2 (08:55→16:40)
[2019-07-26] MEDS: NICOTINE 21MG/24HR PATCH TRANSDERM SCH (08:56)
[2019-07-26] MEDS: LORATADINE 10 MG TAB PO SCH (08:56)
[2019-07-26] MEDS: SERTRALINE 25 MG TAB PO SCH (08:56)
[2019-07-26] MEDS: FLUTICASONE 50MCG/SPRAY NASAL 16GM EA NOSTRIL SCH (08:56)
[2019-07-26] MEDS: GABAPENTIN 100 MG CAP PO SCH ×3 (08:56→20:30)
[2019-07-26] MEDS: TERBINAFINE 1% CREAM 15 GM TUBE TOPICAL SCH ×2 (08:57→20:31)
[2019-07-26] MEDS: LORazepam 1 MG TAB PO PRN ×2 (08:59→16:40)
--- NOTE | 2019-07-26 11:29 | P.PN ---
Progress Note - Text Progress Note Date: 07/26/19 Chief complaint: "I'm still feeling depressed " Subjective: The patient has been seen today as follow-up, chart reviewed, case discussed with the treatment team. Patient slept about 6 hours last night. Patient has been going to some groups and other unit activities. Patient reports diminished appetite. Patient reports continued to feel depressed and has bouts of feeling hopeless and helpless. He greatly minimizes suicidal thoughts today and he denies any plan or intent to hurt himself or others. Reports generally better sleep last night for about 6 hours without trazodone. Denies any auditory or visual hallucinations and denies paranoid ideation. The patient is compliant with his medications and denies any adverse reactions. Patient reports continued to have alcohol withdrawal symptoms including shakiness, sweating, and stomach upset. He received when necessary Ativan based on CIWA score. Objective: Vitals has been reviewed. MENTAL STATUS EVALUATION: Appearance: Appears stated age, early groomed, average body built, and no specific features. Gait/ posture: Steady gait, normal arm swinging, no abnormal movements, with relaxed posture. Attitude and Behavior: Cooperative, related to the interviewer in socially accepted manner, fair eye contact during course of interview. Motor Activity: Decreased psychomotor activity. Speech: spontaneous, normal rate, rhythm, and articulation. Normal volume. Not pressured. Language: Articulating, naming objects and repeat phrases. Mood: Depressed Affect: Constricted. Thought process: Linear, goal-directed. Association: Intact. Thought content: No delusions, denies active suicidal thoughts, denies homicidal thoughts, denies intentions, or plans. Perception: Denies current auditory or visual hallucinations Alertness: No impairment. Concentration: Impaired Orientation: Patient was oriented to time, place, person, and situation Insight regarding psychiatric condition: Limited Judgment regarding daily activities and social situation: Imitated Assessment: Bipolar disorder unspecified, current episode mix it. Generalized anxiety disorder. Alcohol use disorder, severe. Rule out alcohol withdrawal. Tobacco use disorder, severe Plan: Continue inpatient level of care due to depression, mood instability, and further stabilization on medication Continue treatment of bipolar disorder, anxiety disorder, and alcohol use disorder provide psychiatric education regarding patient's diagnosis and treatment options. Precautions: Continue 15 minutes check for safety. Consider medical consultation if any acute medical issues arise. Medical H&P addressed sinusitis, and hypertriglyceridemia: Started Claritin and other symptomatic treatment for sinusitis, and he recommended weight reduction and to stop drinking alcohol to address hypertriglyceridemia. Provide the patient individual, group therapy, substance use disorder counseling to give better insight and learn coping skills. Continue follow-up with the patient daily to monitor progress of depression and anxiety symptoms. Medications: Increase Abilify 10 mg daily for mood stabilization. Continue Neurontin 200 mg 3 times daily for anxiety and post acute withdrawal syndrome. Increase Zoloft 50 mg daily for anxiety and depression. Vistaril 25 mg 4 times a day daily as needed for anxiety. Trazodone 50 mg at bedtime as needed for insomnia. Continue monitor alcohol withdrawal using CIWA protocol was when necessary Ativan for severe withdrawal symptoms Discharge patient to OUTPATIENT services upon a stabilization Prognosis: Minimal improvement Expected LOS: 5-6 days.
[2019-07-26 15:40] LABS: Appearance,Urine Clear (Clear); Bacteria,Urine Rare /hpf; Bilirubin,Urine Negative (Negative); Blood,Urine Negative (Negative); Color,Urine Yellow; Glucose,Urine (UA) Negative (Negative); Ketones,Urine Trace (Negative); Leukocyte Esterase,Urine Negative (Negative); Mucus,Urine Rare /hpf; Nitrite,Urine Negative (Negative); PH, Urine 6.5 (5.0-8.0); Protein,Urine 1+ (Negative); RBC,Urine <1 /hpf (0-5); Specific Gravity,Urine 1.017 (1.001-1.035); Urobilinogen,Urine <2.0 mg/dL (<2.0); WBC,Urine <1 /hpf (0-5)
[2019-07-26] MEDS: traZODone HCL 50 MG TAB PO PRN (20:30)
[2019-07-27] MEDS: LORazepam 1 MG TAB PO PRN ×4 (07:12→20:32)
[2019-07-27] MEDS: GABAPENTIN 100 MG CAP PO SCH ×3 (09:26→20:30)
[2019-07-27] MEDS: FLUTICASONE 50MCG/SPRAY NASAL 16GM EA NOSTRIL SCH (09:26)
[2019-07-27] MEDS: THIAMINE 100 MG TAB PO SCH ×2 (09:26→16:20)
[2019-07-27] MEDS: ARIPiprazole 10 MG TAB PO SCH (09:26)
[2019-07-27] MEDS: LORATADINE 10 MG TAB PO SCH (09:27)
[2019-07-27] MEDS: TERBINAFINE 1% CREAM 15 GM TUBE TOPICAL SCH ×2 (09:27→21:50)
[2019-07-27] MEDS: SERTRALINE 50 MG TAB PO SCH (09:27)
[2019-07-27] MEDS: NICOTINE 21MG/24HR PATCH TRANSDERM SCH (09:27)
--- NOTE | 2019-07-27 15:21 | P.PN ---
Progress Note - Text Progress Note Date: 07/27/19 Interval history: Patient seen in [facility] today. He reports that he was admitted with depression. He relays a history of bipolar disorder with history of manic episodes as well. He does not verbalize any adverse psychotropic medications. He describes that he had been off of his psychotropic medication prior to hospitalization. [facility]. Mental status exam: He is alert and cooperative with the interview. His speech is fluent, not rapid or pressured. Thought processes organized. He does not verbalize any thoughts of harm to self or others. He does not report any hallucinations and his thought processes are organized. He does not show any agitation. He does describe his mood is doing better today. Plan: Patient be maintained on current psychotropic medication regimen. We'll continue to monitor for any medication side effects and monitor his ongoing response to treatment.
[2019-07-27] MEDS: traZODone HCL 50 MG TAB PO PRN (20:31)
[2019-07-28] MEDS: GABAPENTIN 100 MG CAP PO SCH ×3 (08:57→20:55)
[2019-07-28] MEDS: ARIPiprazole 10 MG TAB PO SCH (08:57)
[2019-07-28] MEDS: LORATADINE 10 MG TAB PO SCH (08:57)
[2019-07-28] MEDS: THIAMINE 100 MG TAB PO SCH ×2 (08:57→16:26)
[2019-07-28] MEDS: NICOTINE 21MG/24HR PATCH TRANSDERM SCH (08:58)
[2019-07-28] MEDS: SERTRALINE 50 MG TAB PO SCH (08:58)
[2019-07-28] MEDS: TERBINAFINE 1% CREAM 15 GM TUBE TOPICAL SCH ×2 (08:58→20:34)
[2019-07-28] MEDS: hydrOXYzine PAMOATE 25 MG CAP PO PRN ×2 (08:58→15:06)
[2019-07-28] MEDS: FLUTICASONE 50MCG/SPRAY NASAL 16GM EA NOSTRIL SCH (08:58)
--- NOTE | 2019-07-28 17:06 | P.PN ---
Progress Note - Text Progress Note Date: 07/28/19 Interval history: Patient is seen again in cross [facility] today. He slept much better last night. He seems to be eating well. He does not voice any adverse psychotropic medication side effects. His mood is improved today. Mental status exam: He is alert and cooperative with the interview. Her speech is fluent, not rapid or pressured. Thought processes are organized. His mood is improved today. He denies any thoughts of harm to self. He does not voice any thoughts of harm to others. No evidence of psychosis or agitation. Plan: Patient will be maintained on current psychotropic medication regimen. Continue to monitor for any medication side effects monitor his ongoing response to treatment. Status is improved today.
[2019-07-28] MEDS: traZODone HCL 50 MG TAB PO PRN (20:36)
[2019-07-29] MEDS: SERTRALINE 50 MG TAB PO SCH (07:56)
[2019-07-29] MEDS: ARIPiprazole 10 MG TAB PO SCH (07:56)
[2019-07-29] MEDS: GABAPENTIN 100 MG CAP PO SCH ×4 (07:56→21:14)
[2019-07-29] MEDS: NICOTINE 21MG/24HR PATCH TRANSDERM SCH (07:56)
[2019-07-29] MEDS: LORATADINE 10 MG TAB PO SCH (07:56)
[2019-07-29] MEDS: TERBINAFINE 1% CREAM 15 GM TUBE TOPICAL SCH ×2 (07:57→21:13)
[2019-07-29] MEDS: THIAMINE 100 MG TAB PO SCH ×2 (07:57→18:20)
[2019-07-29] MEDS: FLUTICASONE 50MCG/SPRAY NASAL 16GM EA NOSTRIL SCH (07:57)
[2019-07-29] MEDS: hydrOXYzine PAMOATE 25 MG CAP PO PRN ×3 (07:59→21:15)
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
[2019-07-29] MEDS: traZODone HCL 50 MG TAB PO PRN (21:15)
[2019-07-30 07:04] VITALS: BP 116/91; PULSE 113; RESP 14; TEMP 97.7
[2019-07-30] MEDS: FLUTICASONE 50MCG/SPRAY NASAL 16GM EA NOSTRIL SCH (09:34)
[2019-07-30] MEDS: TERBINAFINE 1% CREAM 15 GM TUBE TOPICAL SCH (09:34)
[2019-07-30] MEDS: LORATADINE 10 MG TAB PO SCH (09:35)
[2019-07-30] MEDS: GABAPENTIN 100 MG CAP PO SCH (09:35)
[2019-07-30] MEDS: SERTRALINE 50 MG TAB PO SCH (09:35)
[2019-07-30] MEDS: THIAMINE 100 MG TAB PO SCH (09:35)
[2019-07-30] MEDS: ARIPiprazole 10 MG TAB PO SCH (09:35)
[2019-07-30] MEDS: NICOTINE 21MG/24HR PATCH TRANSDERM SCH (09:45)
--- NOTE | 2019-07-30 12:53 | P.DS ---
Providers Date of admission: 07/25/19 04:28 Attending physician: Vamshi Tamez MD Consults: 07/25/19 08:05 Consult Physician Routine Consulting Provider: Shari Zee Consult Reason/Comments: H&P and blisters on feet Do you want consulting provider notified?: Yes, Notify in am Primary care physician: Pavel Hansen - Discharge Diagnosis(es) (1) Alcohol intoxication Current Visit: Yes Status: Resolved Priority: Low (2) Alcohol use disorder Current Visit: Yes Status: Chronic Priority: High (3) Alcohol withdrawal Current Visit: Yes Status: Resolved Priority: Low (4) Depression Current Visit: Yes Status: Chronic Priority: Low (5) Suicidal ideation Current Visit: Yes Status: Resolved Priority: High Hospital Course: He is a 34-year-old single male who has a reported history of bipolar illness. He presented to emergency room complaining of suicidal ideation and a breath alcohol level of 0.192. He complains of feeling depressed regarding multiple psychosocial stressors including homelessness, loss of transportation and child custody issues. He is living in a custodial since he left his girlfriend's home. His family will not provide housing due to his history of alcohol use problems. The patient was admitted voluntarily to the inpatient psychiatric unit initially under care of Dr. Rahman. We provided a comprehensive biopsychosocial assessment. Nursing staff monitored his safety as per protocol. He manages alcohol withdrawal using the CIWA scale and lorazepam. He had minimal symptoms of alcohol withdrawal. He restarted his outpatient psychotropic medications including Abilify 10 mg daily and sertraline 50 mg daily. We prescribed trazodone 50 mg at bedtime when necessary for sleep. He participated in therapeutic groups and activities. He posed no management problems and displayed no episodes of behavioral dyscontrol. The depression and suicidal ideation quickly abated once he is back on his psychotropic medications and he completed the alcohol withdrawal. During our individual contacts we discussed his alcohol use and how his alcohol use is contributing to his social problems and his mental health status. He was not interested in participating in a residential treatment program and appeared pre-contemplative regarding reading engaging with Alcoholics Anonymous. At the time of discharge he reported a marked improvement in his mood and absence of suicidal ideation. He plans to return to a local custodial and is spoken with a coworker about transportation to work. He plans to follow up with [facility] for mental health services. Pertinent Studies: Urine drug screen was positive for cannabinoids. Patient Condition at Discharge: Good Plan - Discharge Summary Discharge Rx Participant: No New Discharge Prescriptions: New ARIPiprazole [Abilify] 10 mg PO DAILY 30 Days #30 tab traZODone HCL [Desyrel] 50 mg PO HS PRN 30 Days #30 tab PRN Reason: Insomnia Nicotine 21Mg/24Hr Patch [Habitrol] 1 patch TRANSDERM DAILY 14 Days #14 patch Gabapentin [Neurontin] 200 mg PO TID 30 Days #90 cap hydrOXYzine PAMOATE [Vistaril] 25 mg PO QID PRN 14 Days #60 cap PRN Reason: Anxiety Continue Sertraline [Zoloft] 50 mg PO HS 30 Days #30 tab Discontinued ARIPiprazole [Abilify] 10 mg PO HS #14 tab hydrOXYzine PAMOATE [Vistaril] 25 mg PO Q8HR PRN #20 cap PRN Reason: Anxiety Discharge Medication List ARIPiprazole [Abilify] 10 mg PO DAILY 30 Days #30 tab 07/30/19 [Rx] Gabapentin [Neurontin] 200 mg PO TID 30 Days #90 cap 07/30/19 [Rx] Nicotine 21Mg/24Hr Patch [Habitrol] 1 patch TRANSDERM DAILY 14 Days #14 patch 07/30/19 [Rx] Sertraline [Zoloft] 50 mg PO HS 30 Days #30 tab 07/30/19 [Rx] hydrOXYzine PAMOATE [Vistaril] 25 mg PO QID PRN 14 Days #60 cap 07/30/19 [Rx] traZODone HCL [Desyrel] 50 mg PO HS PRN 30 Days #30 tab 07/30/19 [Rx] Follow up Appointment(s)/Referral(s): Teddy Apodaca [Outside] - 08/06/19 1:00 pm (Aishwarya Parham $45.00 balance due at appointment) Pavel Hansen DO [Primary Care Provider] - 1-2 days Patient Instructions/Handouts: How to Stop Smoking (DC), Bipolar Disorder (DC), Depression (DC), Alcohol Intoxication (DC) Activity/Diet/Wound Care/Special Instructions: Activity and diet as tolerated. No guns or weapons in the home. Refrain from Alcohol and street drugs not prescribed by your physician/s. Take all medications as prescribed, and attend your scheduled follow up appointments for psychiatric after care. If in need of medication refills, please to your primary care physician, or your out patient psychiatric provider. If in crisis please call , or go the nearest ER for an evaluation.
== END 2019-07-30 12:23 | disposition home or self-care (01) | DRG 885 ==
LOC: EC 20:25 → 3MHU 07-25 04:28
PROVIDERS: ADMIT Psychiatry & Neurology Psychiatry; ATTEND Psychiatry & Neurology Psychiatry
DX: F31.9 Bipolar disorder, unspecified (principal); F10.239 Alcohol dependence with withdrawal, unspecified; R45.851 Suicidal ideations; F17.200 Nicotine dependence, unspecified, uncomplicated; F41.0 Panic disorder [episodic paroxysmal anxiety]; F41.1 Generalized anxiety disorder; F43.10 Post-traumatic stress disorder, unspecified; F90.9 Attention-deficit hyperactivity disorder, unspecified type; K21.9 Gastro-esophageal reflux disease without esophagitis; S90.821A Blister (nonthermal), right foot, initial encounter; S90.822A Blister (nonthermal), left foot, initial encounter; Y90.6 Blood alcohol level of 120-199 mg/100 ml; Z59.0 Homelessness; Z79.899 Other long term (current) drug therapy; Z82.49 Family history of ischemic heart disease and other diseases of the circulatory system; Z83.3 Family history of diabetes mellitus; Z91.5 Personal history of self-harm
CPT/HCPCS: 80053; 80061; 80306; 81001; 82075; 83036; 84443; 85025; 99285